=== PATIENT | female | born 1965 | race Caucasian/White ===

== ENCOUNTER 2024-06-06 08:50 | Observation (INO) ==
--- NOTE | 2024-05-10 10:01 | PAT Medication Instructions ---
Medication Instructions Date of Service May 10, 2024 Home Medications Medication Instructions Recorded CPAP Supplies #1 ea 07/07/19 CPAP Machine #1 ea 07/08/19 ipratropium 0.5 mg-albuterol 3 mg 3 ml inhalation QID PRN wheezing 06/20/20 (2.5 mg base)/3 mL nebulization #90 mL soln bupropion HCl 300 mg 24 hr tablet, 300 mg PO QAM #90 tabs 12/06/20 extended release albuterol sulfate 90 mcg/actuation See Rx Instructions inhalation 09/11/21 aerosol inhaler (Ventolin HFA) .COMPLEX PRN shortness of breath or wheezing #18 grams montelukast 10 mg tablet 10 mg PO QPM #90 tabs 02/14/22 lidocaine 5 % topical patch 1 patch topical DAILY #15 ea 11/25/22 calcium 600 mg (as carbonate)-vitamin D3 62.5 mcg (2,500 unit) capsule 1 cap PO QAM ipratropium 0.5 mg-albuterol 3 mg (2.5 mg base)/3 mL nebulization soln 3 ml inhalation QID PRN wheezing bupropion HCl 300 mg 24 hr tablet, extended release 300 mg PO QAM albuterol sulfate 90 mcg/actuation aerosol inhaler (Ventolin HFA) See Rx Instructions inhalation .COMPLEX PRN shortness of breath or wheezing montelukast 10 mg tablet 10 mg PO QPM lidocaine 5 % topical patch 1 patch topical DAILY Beef Liver Supplement 2 tab PO BID Lactobacillus acidophilus 250 million cell capsule (Probiotic Acidophilus) 1,000 mmu cells PO QAM acetaminophen 500 mg tablet (Acetaminophen Extra Strength) 1,500 - 2,000 mg PO BID PRN Pain ascorbic acid (vitamin C) 500 mg tablet (Vitamin C) 500 mg PO QAM atenolol 50 mg tablet 50 mg PO DAILY PRN Anxiety cetirizine 10 mg tablet 10 mg PO HS cholecalciferol (vitamin D3) 125 mcg (5,000 unit) tablet (Vitamin D3) 125 mcg PO QAM lutein 1 tab PO QPM lysine 500 mg tablet 500 mg PO DAILY multivitamin,min-ferrous fumarate 3.3 mg-folic 25 mcg-herb tablet (Hair, Skin and Nails Advanced) 1 tab PO QAM naltrexone 50 mg tablet 50 mg PO QAM alcohol cravings omeprazole 20 mg capsule,delayed release 20 mg PO QAM Continue as directed naltrexone 50 mg tablet 50 mg PO QAM alcohol cravings lidocaine 5 % topical patch 1 patch topical DAILY (Avoid placement near surgery site prior to surgery) STOP taking 2 weeks before surgery (or as soon as possible if surgery is within 2 weeks) Beef Liver Supplement 2 tab PO BID lutein 1 tab PO QPM lysine 500 mg tablet 500 mg PO DAILY multivitamin,min-ferrous fumarate 3.3 mg-folic 25 mcg-herb tablet (Hair, Skin and Nails Advanced) 1 tab PO QAM DO NOT take the morning of surgery calcium 600 mg (as carbonate)-vitamin D3 62.5 mcg (2,500 unit) capsule 1 cap PO QAM Lactobacillus acidophilus 250 million cell capsule (Probiotic Acidophilus) 1,000 mmu cells PO QAM ascorbic acid (vitamin C) 500 mg tablet (Vitamin C) 500 mg PO QAM cholecalciferol (vitamin D3) 125 mcg (5,000 unit) tablet (Vitamin D3) 125 mcg PO QAM Take morning of surgery With a small sip of water, OTHERWISE NOTHING TO EAT OR DRINK AFTER MIDNIGHT: ipratropium 0.5 mg-albuterol 3 mg (2.5 mg base)/3 mL nebulization soln 3 ml inhalation QID PRN wheezing (if needed) bupropion HCl 300 mg 24 hr tablet, extended release 300 mg PO QAM albuterol sulfate 90 mcg/actuation aerosol inhaler (Ventolin HFA) See Rx Instructions inhalation .COMPLEX PRN shortness of breath or wheezing (use if needed; please bring rescue inhaler with you to hospital day of surgery if possible) acetaminophen 500 mg tablet (Acetaminophen Extra Strength) 1,500 - 2,000 mg PO BID PRN Pain(if needed) atenolol 50 mg tablet 50 mg PO DAILY PRN Anxiety(if needed) omeprazole 20 mg capsule,delayed release 20 mg PO QAM Take evening before surgery ipratropium 0.5 mg-albuterol 3 mg (2.5 mg base)/3 mL nebulization soln 3 ml inhalation QID PRN wheezing (if needed) albuterol sulfate 90 mcg/actuation aerosol inhaler (Ventolin HFA) See Rx Instructions inhalation .COMPLEX PRN shortness of breath or wheezing (if needed) montelukast 10 mg tablet 10 mg PO QPM acetaminophen 500 mg tablet (Acetaminophen Extra Strength) 1,500 - 2,000 mg PO BID PRN Pain (if needed) atenolol 50 mg tablet 50 mg PO DAILY PRN Anxiety (if needed) cetirizine 10 mg tablet 10 mg PO HS Other Notes If you have any questions please call us at [phone] or [phone] or [phone] or [phone]
--- NOTE | 2024-05-12 11:23 | Anesthesiology Consultation ---
Date of Service May 12, 2024 Assessment & Plan (1) Encounter for pre-operative examination: - PAT testing to be faxed to [facility] by patient request for upcoming TM placement 05/16/24. Surgeon's office made aware of upcoming procedure. - difficult IV stick: needs IV team. OR made aware. - Patient expresses desire to remain overnight as she will not have someone at home with her, OR and surgeon's office made aware. Chart Review Chart Review: Acceptable Risk for Surgery and Patient seen in Pre Admission Testing Teaching & Discussion Pre-Anesthesia Teaching/Discussion Notes: Instructed NPO after midnight before surgery, except medications with 15 cc of water. Medication instructions provided according to the PAT guidelines. History Surgery Operation Date: 06/06/24 10:20 Proposed Procedures p Right Total Shoulder Arthroplasty versus Right Reverse Total Shoulder Arthroplasty - Ish Chen, DO Patient not agreeable to have weight recorded at PAT visit. Height/Weight Height: 5 ft 4 in Weight: 67.132 kg Allergies Allergy/AdvReac Type Severity Reaction Status Date / Time adhesive Allergy Severe hives/welts Verified 05/09/24 14:12 chlorhexidine Allergy Severe Hives Verified 05/09/24 14:12 gatifloxacin [From Tequin] Allergy Severe hives Verified 05/09/24 14:12 latex Allergy Severe Hives Verified 05/09/24 14:12 Sulfa (Sulfonamide Allergy Severe Hives Verified 05/09/24 14:12 Antibiotics) tomato Allergy Mild RASH FACE Verified 05/09/24 14:11 dexamethasone [From Decadron] AdvReac Intermediate shortness Verified 05/09/24 14:11 of breath Chlora-Prep Allergy Severe Hives/redness/severe Uncoded 05/12/24 11:43 skin irritation steri-strips Allergy Severe hives/skin Uncoded 05/09/24 14:15 irritation surgical glue Allergy Severe Hives Uncoded 05/09/24 14:14 Medications Home Medications Medication Instructions Recorded Confirmed Last Taken CPAP Supplies #1 ea 07/07/19 05/09/24 Unknown CPAP Machine #1 ea 07/08/19 05/09/24 Unknown calcium 600 mg (as 1 cap PO QAM 04/10/20 05/09/24 12/25/21 carbonate)-vitamin D3 62.5 mcg (2,500 unit) capsule ipratropium 0.5 mg-albuterol 3 mg 3 ml inhalation QID PRN wheezing 06/20/20 05/09/24 12/25/21 (2.5 mg base)/3 mL nebulization #90 mL soln bupropion HCl 300 mg 24 hr tablet, 300 mg PO QAM #90 tabs 12/06/20 05/09/24 12/25/21 extended release albuterol sulfate 90 mcg/actuation See Rx Instructions inhalation 09/11/21 05/09/24 12/25/21 aerosol inhaler (Ventolin HFA) .COMPLEX PRN shortness of breath or wheezing #18 grams montelukast 10 mg tablet 10 mg PO QPM #90 tabs 02/14/22 05/09/24 Unknown lidocaine 5 % topical patch 1 patch topical DAILY #15 ea 11/25/22 05/09/24 Unknown Beef Liver Supplement 2 tab PO BID 05/09/24 05/09/24 Unknown Lactobacillus acidophilus 250 1,000 mmu cells PO QAM 05/09/24 05/09/24 Unknown million cell capsule (Probiotic Acidophilus) acetaminophen 500 mg tablet 1,500 - 2,000 mg PO BID PRN Pain 05/09/24 05/09/24 Unknown (Acetaminophen Extra Strength) ascorbic acid (vitamin C) 500 mg 500 mg PO QAM 05/09/24 05/09/24 Unknown tablet (Vitamin C) atenolol 50 mg tablet 50 mg PO DAILY PRN Anxiety 05/09/24 05/09/24 Unknown cetirizine 10 mg tablet 10 mg PO HS 05/09/24 05/09/24 Unknown cholecalciferol (vitamin D3) 125 125 mcg PO QAM 05/09/24 05/09/24 Unknown mcg (5,000 unit) tablet (Vitamin D3) lutein 1 tab PO QPM 05/09/24 05/09/24 Unknown lysine 500 mg tablet 500 mg PO DAILY 05/09/24 05/09/24 Unknown multivitamin,min-ferrous fumarate 1 tab PO QAM 05/09/24 05/09/24 Unknown 3.3 mg-folic 25 mcg-herb tablet (Hair, Skin and Nails Advanced) naltrexone 50 mg tablet 50 mg PO QAM alcohol cravings 05/09/24 05/09/24 Unknown omeprazole 20 mg capsule,delayed 20 mg PO QAM 05/09/24 05/09/24 Unknown release Past Medical History Medical History (Updated 05/12/24 @ 11:50 by Shira Gibson PA-C) Asthma stable, well controlled; last albuterol inhaler use several weeks ago Chronic venous insufficiency Depression with anxiety Difficult intravenous access patient states will need IV team GERD (gastroesophageal reflux disease) controlled, stable per pt History of COVID-19 (~03/2024) beginning of March 2024, tested at [facility] Clearfied -> sinus congestion - treated with paxlovid-symptoms resolved History of Lyme disease (~10/2023) early 2023 - treated. no problems since. Hyperlipidemia monitoring URSZULA (obstructive sleep apnea) CPAP-patient states is not using device Osteoarthritis PVC (premature ventricular contraction) occasional-chronic palpitations Vertigo patient states is having tubes placed in ears Thursday Patient denies h/o stroke, seizures, heart attack, heart failure, DM, HTN, blood clots/DVTs or blood transfusions. Exercise / Class Metabolic Activity II 4-5 Yardwork/Stairs/Walk up hill (denies chest discomfort or shortness of breath with one flight of stairs) Past Family History Family History Grandfather (Paternal) Myocardial infarction Heart disease Father Heart disease Diabetes COPD (chronic obstructive pulmonary disease) Grandmother (Paternal) Diabetes Grandfather (Maternal) Leukemia Denies family history of Ovarian cancer Prostate cancer Breast cancer Lung cancer Colorectal cancer Past Surgical History Surgical History H/O bilateral salpingectomy H/O hand surgery R hand, scapphoid fx repair H/O hysterectomy for benign disease History of colonoscopy History of esophagogastroduodenoscopy (EGD) History of removal of laparoscopic gastric banding device (2017) Nausea and vomiting after administration of anesthetic agent and slow to wake up/agitated/combative one time S/P arthroscopy of right shoulder S/P arthroscopy of shoulder L shoulder S/P endometrial ablation S/P gastric sleeve procedure Status post endovenous radiofrequency ablation of saphenous vein (2018) b/l legs Status post gastric banding surgery (~2012) Past Anesthesia History No Family Hx of Anesthesia Complications History of PONV History of PONV (has received scop patch in the past-denies adverse effects) and Hx of Motion Sickness Social History Smoking Status: Never smoker Do You Dip or Chew Tobacco: No Hx Alcohol Use: Yes Alcohol type: wine alcohol intake frequency: a few times a month Hx Substance Use: No substance use type: does not use Review of Systems Patient denies chest pain, shortness of breath, dyspnea on exertion, fever, chills, cough, or wheezing. Physical Exam Vital Signs Vitals BP 115/75 P 61 TEMP 97.7 SP02 96% on RA RESP 18 Physical Patient resting comfortably in chair in no acute distress, alert and oriented, responding appropriately throughout visit Full cervical extension range of motion without pain TMD 3.5 finger breadths Mallampati Score 2 Dentition: bridge, several caps/crowns; denies chipped or loose teeth, or implants Lungs: normal respiratory effort. Good air movement, clear throughout to auscultation, no adventitious breath sounds Cardiac: regular rate and rhythm, no murmurs noted Carotid arteries: negative bruit bilat Lab Results Anesthesia Preop Results Results Anesthesia Widget: WBC 6.07 K/ul (4.8-10.8) 05/12/24 Hgb 13.1 g/dl (12.0-16.0) 05/12/24 Hct 39.1 % (37.0-47.0) 05/12/24 Plt 233 K/uL (130-400) 05/12/24 Na 141 mmol/L (136-145) 05/12/24 K 4.3 mmol/L (3.5-5.1) 05/12/24 Cl 105 mmol/L (98-107) 05/12/24 CO2 31 mmol/L (21-32) 05/12/24 BUN 10 mg/dl (6-23) 05/12/24 Creat 0.66 mg/dl (0.6-1.2) 05/12/24 Glucose Level 83 mg/dl (70-99(Fasting)) 05/12/24 PT 11.2 Seconds (9.0-12.0) 05/12/24 PTT 26 Seconds (21-31) 05/12/24 INR 1.0 (0.9-1.1) 05/12/24 Blood Type B Positive 05/12/24 Antibody Screen NEGATIVE 05/12/24 Testing Electrocardiogram Date: 05/12/24 Sinus bradycardia, rate 58 bpm Low voltage QRS Chest X-Ray Date: 05/12/24 No acute cardiopulmonary findings. Stress Test Date: 07/21/22 MPHR 66% No definite evidence of ischemia or prior infarction. EF 71% No LV regional motion abnormality.
--- NOTE | 2024-06-02 07:57 | History & Physical Report ---
Date of Service June 02, 2024 Assessment & Plan (1) Osteoarthritis of right shoulder: We will proceed with a right anatomic versus reverse total shoulder arthroplasty. Postoperatively she will be placed in a sling and kept overnight in the hospital for postop medical management. She plans to go to outpatient physical therapy after discharge. History of Present Illness Chief Complaint: Osteoarthritis of the right shoulder. Primary Care Provider: NO PCP Sandra is a pleasant 58-year-old female who initially fell at [facility] on 10/20/2021. She fell directly on to her right side. She denies any shoulder pain before the fall. She was not improving, so I took her to the operating room and did a shoulder arthroscopy on her in December of 2021. During that arthroscopy, I found extensive chondromalacia and arthritis to the right shoulder. Unfortunately, she has not done great postoperatively. She continues to have some shoulder pain. I have given her a couple injections. They are no longer helping. Her symptoms are worsening. She is having trouble sleeping at night. She is having trouble doing activities away from her body or up overhead. After failed conservative treatment, she has elected proceed with a right total shoulder arthroplasty. Allergies Allergy/AdvReac Type Severity Reaction Status Date / Time adhesive Allergy Severe hives/welts Verified 05/09/24 14:12 chlorhexidine Allergy Severe Hives Verified 05/09/24 14:12 gatifloxacin [From Tequin] Allergy Severe hives Verified 05/09/24 14:12 latex Allergy Severe Hives Verified 05/09/24 14:12 Sulfa (Sulfonamide Allergy Severe Hives Verified 05/09/24 14:12 Antibiotics) tomato Allergy Mild RASH FACE Verified 05/09/24 14:11 dexamethasone [From Decadron] AdvReac Intermediate shortness Verified 05/09/24 14:11 of breath Chlora-Prep Allergy Severe Hives/redness/severe Uncoded 05/12/24 11:43 skin irritation steri-strips Allergy Severe hives/skin Uncoded 05/09/24 14:15 irritation surgical glue Allergy Severe Hives Uncoded 05/09/24 14:14 Home Medications Medication Instructions Recorded Confirmed Type CPAP Supplies #1 ea 07/07/19 05/09/24 Rx CPAP Machine #1 ea 07/08/19 05/09/24 Rx calcium 600 mg (as 1 cap PO QAM 04/10/20 05/09/24 History carbonate)-vitamin D3 62.5 mcg (2,500 unit) capsule ipratropium 0.5 mg-albuterol 3 mg 3 ml inhalation QID PRN wheezing 06/20/20 05/09/24 Rx (2.5 mg base)/3 mL nebulization #90 mL soln bupropion HCl 300 mg 24 hr tablet, 300 mg PO QAM #90 tabs 12/06/20 05/09/24 Rx extended release albuterol sulfate 90 mcg/actuation See Rx Instructions inhalation 09/11/21 05/09/24 Rx aerosol inhaler (Ventolin HFA) .COMPLEX PRN shortness of breath or wheezing #18 grams montelukast 10 mg tablet 10 mg PO QPM #90 tabs 02/14/22 05/09/24 Rx lidocaine 5 % topical patch 1 patch topical DAILY #15 ea 11/25/22 05/09/24 Rx Beef Liver Supplement 2 tab PO BID 05/09/24 05/09/24 History Lactobacillus acidophilus 250 1,000 mmu cells PO QAM 05/09/24 05/09/24 History million cell capsule (Probiotic Acidophilus) acetaminophen 500 mg tablet 1,500 - 2,000 mg PO BID PRN Pain 05/09/24 05/09/24 History (Acetaminophen Extra Strength) ascorbic acid (vitamin C) 500 mg 500 mg PO QAM 05/09/24 05/09/24 History tablet (Vitamin C) atenolol 50 mg tablet 50 mg PO DAILY PRN Anxiety 05/09/24 05/09/24 History cetirizine 10 mg tablet 10 mg PO HS 05/09/24 05/09/24 History cholecalciferol (vitamin D3) 125 125 mcg PO QAM 05/09/24 05/09/24 History mcg (5,000 unit) tablet (Vitamin D3) lutein 1 tab PO QPM 05/09/24 05/09/24 History lysine 500 mg tablet 500 mg PO DAILY 05/09/24 05/09/24 History multivitamin,min-ferrous fumarate 1 tab PO QAM 05/09/24 05/09/24 History 3.3 mg-folic 25 mcg-herb tablet (Hair, Skin and Nails Advanced) naltrexone 50 mg tablet 50 mg PO QAM alcohol cravings 05/09/24 05/09/24 History omeprazole 20 mg capsule,delayed 20 mg PO QAM 05/09/24 05/09/24 History release lidocaine 4 % topical patch 1 patch topical DAILY PRN pain #5 05/27/24 Rx (AsperFlex (lidocaine)) ea Past Med/Surg History Problem List Encounter for pre-operative examination Cervicalgia Right arm numbness Degeneration of intervertebral disc at C6-C7 level Neck pain on right side Greater trochanteric bursitis of right hip Osteoarthritis of right shoulder Labral tear of shoulder Vitamin D deficiency Postmenopausal Stress incontinence Asthma Obstructive sleep apnea CPAP Dyslipidemia Chronic venous insufficiency Depression with anxiety Medical History Difficult intravenous access patient states will need IV team Vertigo patient states is having tubes placed in ears Thursday History of Lyme disease (~10/2023) early 2023 - treated. no problems since. PVC (premature ventricular contraction) occasional-chronic palpitations Osteoarthritis GERD (gastroesophageal reflux disease) controlled, stable per pt History of COVID-19 (~03/2024) beginning of March 2024, tested at [facility] Clearfied -> sinus congestion - treated with paxlovid-symptoms resolved URSZULA (obstructive sleep apnea) CPAP-patient states is not using device Hyperlipidemia monitoring Depression with anxiety Chronic venous insufficiency Asthma stable, well controlled; last albuterol inhaler use several weeks ago Surgical History S/P gastric sleeve procedure S/P arthroscopy of right shoulder History of colonoscopy Nausea and vomiting after administration of anesthetic agent and slow to wake up/agitated/combative one time History of esophagogastroduodenoscopy (EGD) H/O bilateral salpingectomy H/O hysterectomy for benign disease S/P endometrial ablation S/P arthroscopy of shoulder L shoulder History of removal of laparoscopic gastric banding device (2016) Status post endovenous radiofrequency ablation of saphenous vein (2018) b/l legs Status post gastric banding surgery (~2012) H/O hand surgery R hand, scapphoid fx repair Family History Grandfather (Paternal) Myocardial infarction Heart disease Father Heart disease Diabetes COPD (chronic obstructive pulmonary disease) Grandmother (Paternal) Diabetes Grandfather (Maternal) Leukemia Denies family history of Ovarian cancer Prostate cancer Breast cancer Lung cancer Colorectal cancer Social History Smoking Status: Never smoker Second Hand Exposure: No; Do You Dip or Chew Tobacco: No; Tobacco Cessation Education Requested by Patient: No Hx Alcohol Use: Yes Alcohol type: wine Hx Substance Use: No Preferred Language: Latvian Communication Ability: Effective Visual Impairment: No Limitations Hearing Ability: Hard of Hearing Inspector [employer] Required: No Beliefs That Will Affect Care: None marital status: marital status details: currently seperated Current Living Situation: Alone current occupational status: unemployed Other Information That Helps Us Care for You: No Feels Safe at Home: Yes Safety Concerns: Feels Safe At This Time Childhood Exposure to Second-Hand Smoke: Yes Diet Comment: regular caffeine: No during the past year weight has: remained stable Dental Care, Regularly: Yes Physical Activity Frequency: Does not Exercise Seatbelt Use: always Sunscreen Use: Yes Assistive Devices: Denture - Upper and Denture - Lower Review of Systems All systems reviewed & are unremarkable except as noted in HPI & below. Physical Exam On physical exam of the right shoulder, she has decreased range of motion. She has crepitus throughout. Pain over the glenohumeral joint line.. Constitutional WD/WN, vitals as above Eyes PERRL, conjunctivae normal, anicteric sclerae ENMT external ear and nose normal, oropharynx normal Neck trachea midline, no thyromegaly Respiratory normal respiratory effort Cardiovascular RRR, no murmur, no edema Gastrointestinal (Abdomen) normal bowel sounds, soft, nontender, no hepatosplenomegaly Psychiatric A+Ox3, euthymic affect Results & Data Results & Data Laboratory Results . Diagnostic Findings X-rays and arthroscopy images of the right shoulder show advanced glenohumeral arthritis with joint space narrowing osteophyte formation and exposed bone.. PG Care Time/CCT Total # of Minutes Spent Total Time Spent with Patient: Total time spent is greater than 50% in coordination of care (as documented) at patient's floor/unit and/or counseling patient: Coding Level of Care Code None Diagnoses Osteoarthritis of right shoulder M19.011
[~2024-06-06 08:50] MED LIST: BUPIVACAINE 0.5 % 5 MG/1 ML PF 10ML VIAL ONE
[2024-06-06] MEDS: LR 15ML/HR IV SCH (09:47)
[2024-06-06] MEDS: LR 60ML/HR IV SCH (09:48)
[2024-06-06] MEDS: ACETAMINOPHEN 500 MG TAB PO SCH ×2 (09:49→16:56)
[2024-06-06] MEDS: GABAPENTIN 600 MG DOSE PO SCH (09:50)
[2024-06-06] MEDS: FAMOTIDINE 20 MG TAB PO SCH (09:50)
[2024-06-06] MEDS: dexAMETHasone**PF** 10 MG/ML VIAL IV SCH (09:50)
--- NOTE | 2024-06-06 10:57 | History & Physical Bridge Note ---
Date of Service June 06, 2024 History & Physical Bridge Note I have examined the patient, reviewed the History & Physical and in the interval since the performance of the History & Physical I have noted the following changes of clinical significance: no changes noted
[2024-06-06] MEDS ORDERED: PROPOFOL IV EMULSION 10 MG/ML 20 ML VIAL IV ONE ×2 (11:01→11:08)
[2024-06-06] MEDS ORDERED: MIDAZOLAM HCL 1 MG/ML 2ML VIAL ONE (11:01)
[2024-06-06] MEDS ORDERED: LIDOCAINE 2% 2 ML VIAL/AMP(20MG/ML) INFIL ONE (11:01)
[2024-06-06] MEDS ORDERED: fentaNYL citrate PF 100 MCG/2 ML VIAL ONE (11:01)
[2024-06-06] MEDS ORDERED: ATROPINE SULFATE 0.1 MG/ML 10ML SYR IV PRN (11:33)
[2024-06-06] MEDS ORDERED: ONDANSETRON INJ 2 MG/ML 2 ML VIAL IV PRN ×2 (11:33→15:34)
[2024-06-06] MEDS ORDERED: ePHEDrine sulfate 50 MG/ML AMP IV PRN (11:33)
[2024-06-06] MEDS ORDERED: SCOPOLAMINE 1 MG/72 HR TDSY PATCH TD ONE (11:41)
[2024-06-06] MEDS: TRANEXAMIC ACID 1,000 MG **IV Pre-op IV SCH (11:41)
[2024-06-06] MEDS: ceFAZolin 2000MG 2,000 MG/15 ML SYR IV SCH (11:53)
[2024-06-06] MEDS ORDERED: ePHEDrine sulfate 50 MG/5 ML SYR ONE (12:25)
[2024-06-06] MEDS ORDERED: PHENYLEPHRINE HCL 10 MG/ML VIAL ONE (12:25)
[2024-06-06] MEDS ORDERED: ePHEDrine sulfate 50 MG/ML AMP ONE (12:34)
[2024-06-06] MEDS ORDERED: diphenhydrAMINE 50 MG/ML VIAL ONE (12:36)
[2024-06-06] MEDS: TRANEXAMIC ACID 1,000 MG **IV Intra-op IV SCH (13:02)
[2024-06-06] MEDS: ROPIV 0.5% 246mg, Ketorolac 30mg, EPINEPHrine 0.5mg in NSS INFIL SCH (13:03)
[2024-06-06] MEDS: ORTHO JOINT ANESTHETIC ONE (13:04)
--- NOTE | 2024-06-06 13:11 | Operative Report ---
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 Post-Op Diagnosis: Right Shoulder Arthritis with tendinopathy long head of the biceps tendon I identified the patient and participated in the time-out.: Yes Procedure Operation Date: 06/06/24 11:00 Actual Procedures p Right Total Shoulder Arthroplasty (Right) with open biceps tenodesis as a distinct and separate procedure (modifier 59)- Ish Chen DO Surgeon Ish Chen DO Slip Cover Estimator Timbo Otero PA-C Estimated Blood Loss 200 Findings Consistent with Post-Op Diagnosis Specimens Right humeral head Description of Procedure A CPT code modifier 59: The long head of the biceps tendon was enlarged and inflamed consistent with tendinopathy. A tenodesis was opted. This was a separate and distinct portion of the procedure. For these reasons, a CPT code modifier 59 will be added to this case. Implants used: I used a [employer] Comprehensive total shoulder arthroplasty system with a size 11 press fit micro humeral stem, a size 42 x 21 eccentric humeral head, and a size 3 glenoid with a trabecular metal peg. The glenoid was cemented in place with Palacos G cement. Sandra arrived at [facility] for the above procedure. She was seen in the preoperative holding area and the operative extremity was identified and signed. She was given a preoperative antibiotic, TXA, and an interscalene nerve block. She was taken back to the operating room, laid on table in supine position, and put under general anesthesia. She was then put into the beachchair position. The shoulder was then prepped and draped in sterile fashion. A timeout was done and the patient and the operative extremity was properly identified. A deltopectoral approach was used. Dissection was taken down through the fascia and the deltoid was retracted laterally and the conjoined tendon was retracted medially. The anterior shoulder was exposed. The biceps groove was opened up and the biceps tendon was examined extensively. The biceps tendon demonstrated enlargement and inflammatory changes consistent with longstanding inflammation in the context of osteoarthritis. The long head of the biceps tendon was then t enodesed to the upper border of the pectoralis major. This was a separate and distinct portion of the procedure. The subscapularis was then released off the lesser tuberosity with a centimeter of cuff tissue remaining. The inferior capsule was released and the humeral head was dislocated. The rotator cuff was inspected and intact. A canal finding reamer was sent down the center of the humeral canal. Sequential reaming up to a size 11 reamer was done. Offset reamer a proximal humeral resection guide was placed. The proximal humerus was resected at 135 of inclination and 30 of retroversion. Inferior osteophytes were then removed and the glenoid was exposed. Time was spent doing an appropriate labral release. The glenoid measured to be a size 3. A 3.2 mm Steinmann pin was placed in the central hole of the glenoid vault pin guide. The glenoid was then reamed with a propeller reamer. The central post cutter was then used to prepare for the central boss. The cannulated peripheral peg drill guide was then placed and 3 peg holes were drilled. The final size 3 glenoid was then cemented in place with Palacos G cement. Surrounding soft tissues were then injected with 100 cc of an orthopedic pain control cocktail. Once cement had dried the proximal humerus was once again exposed. Sequential broaching of the humerus up to a size 11 broach was done. Off that broach a size 42 x 21 eccentric humeral head was trialed. The shoulder was then reduced, brought through a full range of motion, and felt to be stable. The shoulder was then dislocated and the broach was removed. The final size 11 micro humeral stem implant was then impacted into place. A size 42 x 21 eccentric humeral head was then impacted onto the humeral stem. The shoulder was then reduced and once again brought through a full range of motion and felt to be stable. The subscapularis was then tenodesed back to the lesser tuberosity with transosseous FiberWire sutures and side to side sutures with the arm in 45 of external rotation. 2 sutures were placed in the lateral rotator interval. A dilute betadyne lavage was then done for 3 minutes. The joint was then irrigated with normal saline solution. Hemostasis was obtained. The interval was closed with 2-0 Vicryl suture. The skin was closed with 2-0 Vicryl and sapphire. A Silverlon dressing was placed and the arm was rested in a regular arm sling. She was then extubated and transferred to a hospital bed. She was taken to the postanesthesia care unit in stable condition. She tolerated the procedure well. Timbo Otero PA-C, was present for the entire procedure. He was critical for patient positioning, prepping, draping, retraction exposure, wound closure and application of sterile dressing. I attest to the content of the Intraoperative Record and any orders documented therein. Any exceptions are noted below.
[2024-06-06] MEDS: fentaNYL citrate PF 100 MCG/2 ML VIAL IV PRN (14:00)
--- NOTE | 2024-06-06 14:17 | Anesthesiology Progress Note ---
Date of Service June 06, 2024 Anesthesia Post Procedure Vital Signs Vital Signs: Temp Pulse Resp BP Pulse Ox O2 Del Method O2 Flow Rate 06/06/24 14:10 52 L 12 102/56 L 100 Nasal Cannula 2 06/06/24 14:00 64 15 104/67 97 Room Air 06/06/24 13:50 59 L 14 111/67 100 Oxymask 10 06/06/24 13:40 64 14 102/58 L 100 Oxymask 10 06/06/24 13:33 96.8 F L 63 13 102/54 L 100 Oxymask 10 06/06/24 09:12 97.9 F 55 L 18 112/73 98 Room Air Pain Intensity Right Shoulder: Pain Intensity: 10 Right Axilla: Pain Intensity: 5 Transfer of Care Handoff Completed per policy Notes Mental Status: alert / awake / arousable and participated in evaluation Patient Amnestic to Procedure: Yes Nausea / Vomiting: adequately controlled Pain: adequately controlled Airway Patency, RR, SpO2: stable & adequate BP & HR: stable & adequate Hydration State: stable & adequate Anesthetic Complications: no major complications apparent and Pt Satisfied with anesthetic care
--- NOTE | 2024-06-06 14:22 | XRay Report ---
XR shoulder RT min 2V routine CLINICAL HISTORY: Post shoulder surgery TECHNIQUE: 3 views of the right shoulder were obtained. Comparison: None available at the time of this dictation. FINDINGS: Patient is status post shoulder arthroplasty with expected postsurgical changes including soft tissue swelling and subcutaneous emphysema. No periarticular lucency or hardware fracture is seen. IMPRESSION: Expected postoperative appearance status post placement of shoulder arthroplasty. ACT 112: Negative or not required by law. Electronically signed by: Natanael Howe M.D. 06/06/2024 2:21 PM
[2024-06-06] MEDS ORDERED: NALOXONE HCL 0.4 MG/1 ML VIAL/CARP IV PRN (15:34)
[2024-06-06] MEDS ORDERED: ALBUT/IPRATROP 3MG/0.5MG NEB 3 ML VIAL INH PRN (15:34)
[2024-06-06] MEDS ORDERED: METOCLOPRAMIDE HCL INJ 5 MG/ML 2 ML VIAL IV PRN (15:34)
[2024-06-06] MEDS ORDERED: NON-FORMULARY MEDICATION (Cpap Supplies misc) SCH (15:34)
[2024-06-06] MEDS ORDERED: MAGNESIUM HYDROXIDE SUSP 30 ML UDC PO PRN (15:34)
[2024-06-06] MEDS ORDERED: ALBUTEROL HFA 8 GM INHALER INH PRN (15:34)
[2024-06-06] MEDS ORDERED: bisacodyL 10 MG SUPP PR PRN (15:34)
[2024-06-06] MEDS ORDERED: HYDROmorphone INJ 0.5 MG/0.5 ML SYR IV PRN (15:34)
[2024-06-06] MEDS ORDERED: ATENOLOL 50 MG TABLET PO PRN (15:34)
[2024-06-06] MEDS ORDERED: NON-FORMULARY MEDICATION (Cpap Machine misc) SCH (15:34)
[2024-06-06] MEDS: KETOROLAC TROMETHAMINE 15 MG/ML VIAL IV SCH (16:57)
[2024-06-06] MEDS: oxyCODONE HCL IR 5 MG TAB (IMMEDIATE RELEASE) PO PRN (19:21)
[2024-06-06] MEDS: ceFAZolin 1000MG 1,000 MG/7.5 ML SYR IV SCH (20:07)
[2024-06-06] MEDS: MONTELUKAST SODIUM 10 MG TABLET PO SCH (20:08)
[2024-06-06] MEDS: CETIRIZINE HCL 10 MG TABLET PO SCH (20:08)
[2024-06-06] MEDS: SENNA 8.6 MG TAB PO SCH (20:11)
[2024-06-06] MEDS: DOCUSATE SODIUM 100 MG CAP PO SCH (20:11)
[2024-06-06] MEDS ORDERED: [UNRECOGNIZED DRUG - OTHER] PO SCH (21:00)
[2024-06-06] MEDS ORDERED: NON-FORMULARY MEDICATION (Lutein 1 TAB) PO SCH (21:00)
--- NOTE | 2024-06-07 06:13 | Orthopedic Progress Note ---
Date of Service June 07, 2024 Assessment & Plan (1) Status post replacement of right shoulder joint: Overall she is doing fairly well. She is not having much pain in the right shoulder. Will see how she does this morning with physical therapy and her hypotension. As long as she is relatively asymptomatic with the hypotension she can be discharged to home later today. She will follow-up with orthopedics in 2 weeks. Subjective Sandra was seen and examined at bedside this morning. Overall she is doing fairly well. She is not having any pain in the right shoulder. She was dealing with some hypotension last night. She has no other complaints.. Review of Systems All systems reviewed & are unremarkable except as noted in HPI & below. Physical Exam Physical exam of the right shoulder shows that the nerve block still in effect. She has minimal motion of her hand. She is wearing her sling as instructed. The dressing is clean and dry.. Results & Data Results & Data Laboratory Results . Diagnostic Findings Postoperative x-rays of the right shoulder show the prosthesis to be in anatomic alignment without any evidence of fracture complication, or loosening.. PG Care Time/CCT Total # of Minutes Spent Total Time Spent with Patient: Total time spent is greater than 50% in coordination of care (as documented) at patient's floor/unit and/or counseling patient: Coding Level of Care Code 89008 Post Operative Follow-Up Diagnoses Status post replacement of right shoulder joint Z96.611
[2024-06-07] MEDS: traMADol HCL 50 MG TABLET PO PRN (08:01)
[2024-06-07] MEDS: dexAMETHasone 4 MG TAB PO SCH (08:58)
[2024-06-07] MEDS: buPROPion XL 300 MG TABCR PO SCH (08:58)
[2024-06-07] MEDS: CHOLECALCIFEROL 125 MCG (5,000 UNITS) TAB PO SCH (08:58)
[2024-06-07] MEDS: MULTIVITAMIN TAB PO SCH (08:58)
[2024-06-07] MEDS: ADVANCED PROBIOTIC 625 MG CAPSULE PO SCH (08:58)
[2024-06-07] MEDS: PANTOprazole 40 MG TAB PO SCH (08:58)
[2024-06-07] MEDS: ASCORBIC ACID 500 MG TAB PO SCH (08:58)
[2024-06-07] MEDS: CALCIUM 600MG + VIT D 400 IU TAB PO SCH (08:59)
[2024-06-07] MEDS ORDERED: NON-FORMULARY MEDICATION (Lysine 500 mg Tablet) PO SCH (09:00)
[2024-06-07] MEDS ORDERED: [UNRECOGNIZED DRUG - OTHER] PO SCH (09:00)
[2024-06-07] MEDS ORDERED: MULTIVIT MIN IRON FA HERB PO SCH (09:00)
[2024-06-07] MEDS: SODIUM CHLORIDE 0.9% 500 ML IV ONE (11:15)
[2024-06-07 15:27] VITALS: PULSE 54; RESP 18; TEMP 97.7; O2SAT 96
[2024-06-07 17:51] VITALS: BP 112/59
== END 2024-06-07 19:10 | disposition home health service (06) ==
LOC: ASU 08:50 → PACUINP 08:50 → 3N 15:25